=== PATIENT | male | born 1985 | race Caucasian/White ===

== ENCOUNTER 2022-10-06 18:36 | Emergency (ER) | payer BC ==
[~2022-10-06] VITALS: Ht 180.3 cm; Wt 102.2 kg
[2022-10-06] VITALS (15 sets, daily range): BP systolic 133–159; BP diastolic 88–104
[~2022-10-06 18:36] MED LIST: ANAPROX275 MG OR; CEPHALEXIN500 M1 OR; CEPHALEXIN500 MG OR; FLEXERIL OR; GENOPTIC0.3 % OP; NAPROSYN500 MG PO; NO MEDS; OXYCOD-APAP1 TAB OR; ROBITUSSIN AC10 ML OR; VICODIN1 TAB OR
[2022-10-06 20:07] LABS: HEMATOCRIT 41.9 % (39.0-50.0); IMMATURE GRANULOCYTES 0.1 % (0.0-5.0); MEAN CORPUSCULAR HGB 31.8 pG CALC (26.0-32.0); MEAN CORPUSCULAR HGB CONC 35.8 g/dL CAL (32.0-36.0); NEUT# 3.54 thou/uL (1.82-7.42); RED BLOOD COUNT 4.71 mill/uL (4.70-6.10); RED CELL DISTRI WIDTH 12.2 % (11.5-15.5)
[2022-10-06 20:13] LABS: ALBUMIN 4.7 g/dL (3.2-5.0); ALKALINE PHOSPHATASE 56 u/l (38-126); BUN 22 mg/dL (9-20); BUN/CREATININE RATIO 13 (12-20 (CALC)); CARBON DIOXIDE 24 mmol/l (22-30); CHLORIDE 103 mmol/l (95-108); CREATININE 1.7 mg/dL (0.7-1.3); GFR FOR AFR.AMER. 55 ML/MIN (>=60 (CALC)); GFR OTHER RACES 46 ML/MIN (>=60 (CALC)); SODIUM 142 mmol/l (137-146); TOTAL PROTEIN 7.1 g/dL (6.3-8.2)
[2022-10-06 20:20] LABS: ANION GAP 18 (6-22 (CALC)); BILIRUBIN, TOTAL 1.6 mg/dL (0.0-1.4); POTASSIUM 2.9 mmol/l (3.5-5.1); SGOT/AST 53 u/l (17-59)
[2022-10-06 20:25] LABS: MYOGLOBIN 174 ng/mL (0 - 121)
[2022-10-06 21:57] LABS: URINE BILIRUBIN - DIPSTICK NEGATIVE (NEGATIVE); URINE BLOOD DIPSTICK NEGATIVE (NEGATIVE); URINE COLOR YELLOW; URINE GLUCOSE - DIPSTICK NEGATIVE (NEGATIVE); URINE KETONE 40 mg/dL (NEGATIVE); URINE LEUK ESTERASE NEGATIVE (NEGATIVE); URINE PROTEIN - DIPSTICK NEGATIVE (NEG-TRACE); URINE SPECIFIC GRAVITY 1.015; URINE UROBILINOGEN - DIPSTICK 0.2 E.U./dL (0.2)
[2022-10-06 22:00] LABS: URINE NITRITE - DIPSTICK NEGATIVE (Negative)
[2022-10-06] MEDS ORDERED: POTASSIUM CHLO20 ME1 PO (22:07)
== END 2022-10-06 22:37 | disposition home or self-care (01) | DRG 149 ==
LOC: ED 18:36
PROVIDERS: Family Medicine
DX: H81.09 Meniere's disease, unspecified ear (principal); E87.6 Hypokalemia; E86.0 Dehydration; Z20.822 Contact with and (suspected) exposure to COVID-19

== ENCOUNTER 2022-11-18 16:29 | Emergency (ER) | payer BC ==
[~2022-11-18] VITALS: Ht 180.3 cm; Wt 90.7 kg
[~2022-11-18 16:29] MED LIST changes: +POTASSIUM CHLO20 ME1 PO
[2022-11-18 17:38] VITALS: BP 147/100
[2022-11-18] MEDS ORDERED: MAXITROL0.1 % OD (18:45)
== END 2022-11-18 19:00 | disposition home or self-care (01) | DRG 125 ==
LOC: ED 16:29
DX: T15.01XA Foreign body in cornea, right eye, initial encounter (principal); S00.251A Superficial foreign body of right eyelid and periocular area, initial encounter

== ENCOUNTER 2024-10-03 10:27 | Emergency (ER) | payer BC ==
[2024-10-03] VITALS (7 sets, daily range): BP systolic 138–176; BP diastolic 90–118
[~2024-10-03] VITALS: Ht 180.3 cm; Wt 113.0 kg
[~2024-10-03 10:27] MED LIST changes: +MAXITROL0.1 % OD
[2024-10-03] MEDS ORDERED: ASPIRIN 81 MG/TAB PO ONE (10:30)
[2024-10-03] MEDS ORDERED: KETOROLAC TROMETHAMINE 15 MG/ML SDV IV ONE (10:40)
[2024-10-03 10:52] LABS: BASO% 0.5 % (0-3); EOS% 3.9 % (0-8); HEMATOCRIT 46.3 % (39.0-50.0); HEMOGLOBIN 16.3 g/dl (14.0-18.0); IMMATURE GRANULOCYTES 0.7 % (0.0-5.0); LYMPH% 35.7 % (15-41); MEAN CORPUSCULAR HGB 31.3 pG CALC (26.0-32.0); MEAN CORPUSCULAR HGB CONC 35.2 g/dL CAL (32.0-36.0); MONO% 6.9 % (2-13); NEUT# 3.93 thou/uL (1.82-7.42); NEUT% 52.3 % (42-76); RED BLOOD COUNT 5.2 mill/uL (4.70-6.10); RED CELL DISTRI WIDTH 12.1 % (11.5-15.5)
[2024-10-03 11:01] LABS: ALBUMIN 4.7 g/dL (3.2-5.0); ALKALINE PHOSPHATASE 58 u/l (38-126); ANION GAP 15 (6-22 (CALC)); BUN 21 mg/dL (9-20); BUN/CREATININE RATIO 18 (12-20 (CALC)); CARBON DIOXIDE 25 mmol/l (22-30); CHLORIDE 106 mmol/l (95-108); CREATININE 1.2 mg/dL (0.7-1.3); ESTIMATED GFR 79 ML/MIN (>=90 (CALC)); SGOT/AST 33 u/l (17-59); SODIUM 142 mmol/l (137-146); TOTAL PROTEIN 7.4 g/dL (6.3-8.2)
[2024-10-03 11:32] LABS: POTASSIUM 4.3 mmol/l (3.5-5.1)
== END 2024-10-03 14:59 | disposition home or self-care (01) | DRG 313 ==
LOC: ED 10:27
PROVIDERS: Family Medicine
DX: R07.9 Chest pain, unspecified (principal); E66.9 Obesity, unspecified

== ENCOUNTER 2024-10-14 04:54 | Emergency (ER) | payer BC ==
[2024-10-14] VITALS (7 sets, daily range): BP systolic 124–145; BP diastolic 78–107
[~2024-10-14] VITALS: Ht 180.3 cm; Wt 115.0 kg
[2024-10-14] MEDS ORDERED: TAMSULOSIN HCL 0.4 MG CAP PO STA (05:14)
[2024-10-14] MEDS ORDERED: SODIUM CHLORIDE 0.9% 1,000 ML IV STA (05:14)
[2024-10-14] MEDS ORDERED: KETOROLAC TROMETHAMINE 30 MG/ML SDV IV ONE (05:15)
[2024-10-14] MEDS ORDERED: PROMETHAZINE HCL 25 MG/ML AMP IV ONE (05:15)
[2024-10-14 06:00] LABS: BASO% 0.4 % (0-3); EOS% 1.9 % (0-8); HEMATOCRIT 42.4 % (39.0-50.0); IMMATURE GRANULOCYTES 0.2 % (0.0-5.0); LYMPH% 15.1 % (15-41); MEAN CELL VOLUME 92.4 fL CALC (80.0-100.0); MEAN CORPUSCULAR HGB 31.2 pG CALC (26.0-32.0); MEAN CORPUSCULAR HGB CONC 33.7 g/dL CAL (32.0-36.0); MONO% 6.1 % (2-13); NEUT# 6.16 thou/uL (1.82-7.42); NEUT% 76.3 % (42-76); RED BLOOD COUNT 4.59 mill/uL (4.70-6.10); RED CELL DISTRI WIDTH 12.4 % (11.5-15.5)
[2024-10-14 06:02] LABS: HEMOGLOBIN 14.3 g/dl (14.0-18.0)
[2024-10-14 06:19] LABS: ALBUMIN 4.3 g/dL (3.2-5.0); BILIRUBIN, TOTAL 0.8 mg/dL (0.2-1.3); CREATININE 1.2 mg/dL (0.7-1.3); POTASSIUM 4.1 mmol/l (3.5-5.1); TOTAL PROTEIN 6.9 g/dL (6.3-8.2)
[2024-10-14] MEDS ORDERED: TAMSULOSIN0.4 MG PO (07:12)
[2024-10-14] MEDS ORDERED: TYLENOL # 31 TA1 PO (07:12)
== END 2024-10-14 07:33 | disposition home or self-care (01) | DRG 694 ==
LOC: ED 04:54
PROVIDERS: Family Medicine
DX: N13.2 Hydronephrosis with renal and ureteral calculous obstruction (principal)
CPT/HCPCS: J2550

== ENCOUNTER 2024-11-10 09:11 | Emergency (ER) | payer BC ==
[~2024-11-10] VITALS: Ht 180.3 cm; Wt 117.9 kg
[~2024-11-10 09:11] MED LIST changes: +TAMSULOSIN0.4 MG PO; +TYLENOL # 31 TA1 PO
[2024-11-10 09:18] VITALS: BP 167/108
[2024-11-10 09:31] VITALS: BP 163/113
[2024-11-10 09:45] VITALS: BP 148/123
[2024-11-10] MEDS ORDERED: TAM75CAP PO (10:10)
[2024-11-10 10:26] VITALS: BP 148/123
== END 2024-11-10 10:26 | disposition home or self-care (01) | DRG 195 ==
LOC: ED 09:11
DX: J10.1 Influenza due to other identified influenza virus with other respiratory manifestations (principal)